=== PATIENT | male | born 1975 | race Caucasian/White ===

== ENCOUNTER 2016-10-22 09:59 | Emergency (ER) | payer OTHER ==
--- NOTE | 2016-10-22 11:12 | DIAGNOSTIC IMAGING REPORT ---
PROCEDURE: XR CHEST 2 VIEW INDICATION: COUGH, initial encounter TECHNIQUE: PA and lateral view. COMPARISON: None. FINDINGS: Lungs are clear. Cardiovascular structures are normal. Bony thorax is unremarkable. IMPRESSION: 1. Negative chest.
--- NOTE | 2016-10-22 12:25 | ED CLINICAL REPORT ---
Clinical Report - Physicians/Mid Levels [facility] [address] [place] [address] 10/22/2016 10:02 Patient: SERG MAURICIO Time Seen: 10:28; initial patient contact. Arrived- By private vehicle. Historian- patient. HISTORY OF PRESENT ILLNESS Chief Complaint: COUGH. This started about 1 week ago and is still present (worse). It was gradual in onset. The illness is described as moderate. The patient has had sputum production, a cough, a sore throat, nasal congestion and sinus pressure. He has had sinus drainage, chills, muscle aches and a nasal discharge. No difficulty breathing, chest discomfort or pain, fever or ear pain. Additional history - The patient has had contact with a sick individual. No recent travel. Similar symptoms previously: None. Recent medical care: Not recently seen/assessed. REVIEW OF SYSTEMS No headache, nausea or vomiting. He has had skin lesion. All systems otherwise negative, except as recorded above. PAST HISTORY Negative. Problems: no known problems. Surgeries: No history of previous surgery. Additional Surgeries: no known surgeries. Medications: None. Allergies: None. SOCIAL HISTORY Current every day smoker. ADDITIONAL NOTES The nursing notes have been reviewed with agreement regarding the chief complaint, PMH and patient medications and allergies. PHYSICAL EXAM Vital Signs: 10/22/2016 10:25 BP: 140/88. HR: 78. RR: 18. O2 saturation: 100%. Temp: 97.9 F. Have been reviewed. Hypertensive. Heart rate normal. Respiratory rate normal. Temperature normal. Oxygen saturation normal. Appearance: Alert. No acute distress. Eyes: Eyes normal inspection. ENT: Ears normal. Nose normal. Moderate generalized pharyngeal erythema with right tonsillar swelling and left tonsillar swelling. No right tonsillar exudate or left tonsillar exudate. Neck: Normal inspection. No lymphadenopathy. CVS: Normal heart rate and rhythm. Heart sounds normal. Respiratory: No respiratory distress. Expiratory mild wheezes in the left lung base posteriorly. Skin: Single medium abscess with fluctuance, pointing and cellulitis to the face. Extremities: No calf tenderness. No lower extremity edema. Neuro: Oriented X 3. LABS, X-RAYS, AND EKG Chest X-ray: No acute disease. Normal lung markings present. Normal heart size. No infiltrate. Views: PA and lateral. Technique: good. The X-rays were independently viewed by me and interpreted contemporaneously by me. Prior films were not available for comparison. Interpretation time: 1100. PROGRESS AND PROCEDURES Incision & Drainage of Abscess: Time: 12:24. Per protocol, time-out completed immediately before the procedure. The abscess is located in the face. The risks of the procedure, benefits and alternatives were explained. Skin cleansed with Shur-Clens. The abscess was incised with a surgical blade. A moderate amount of pus was drained. Sample obtained for cultures. Estimated blood loss: 2 mL. ( 18 ga needle used to incise). Disposition: Discharged home in good and improved condition. Condition: good. CLINICAL IMPRESSION 10/22/2016 11:05 BP: 134/78. HR: 81. RR: 12. O2 saturation: 99%. Vital Signs: have been reviewed as normal. Single deep abscess to the face with incision and drainage. Acute ethmoidal sinusitis INSTRUCTIONS Prescription Medications: Clindamycin 300 mg: take 1 capsule orally every 8 hours for 7 days. No refill. Flonase nasal spray: 2 sprays to each nostril daily. Dispense one (1) unit. No refills. Substitution is permissible Follow-up: Screening today revealed the patient's blood pressure to be in the pre-hypertensive range. The patient should follow up with a primary care provider for blood pressure management. Follow-up with: Wood Odell MD, [facility], , [facility], [address] [place] [address] Follow up in about three days. Call for an appointment. (Electronically signed by Pop Sifuentes Dr. 10/22/2016 21:58)
--- NOTE | 2016-10-22 12:25 | ED ORDER SUMMARY ---
..... Patient: SERG MAURICIO OrderSheet [facility] VisitID: [id number] [address] [place] [address] 41y, M Registration Date/Time: 10/22/2016 ORDER SHEET Weight: 145.1 kg (stated) Allergies: None GENERAL ORDERS: Chest 2V Urgent (10:41 10/22/2016 Aleena Haney) (Ack 10:46 LTapper) (11:04 JBoarbrittaney R.N.) Culture, Wound Deep (Face) (...) Urgent (12:25 10/22/2016 Aleena Haney) (12:28 RKmark) MEDICATION ORDERS: Hydrocodone-APAP PO 5/325 mg (NOW, HIGH ALERT MEDICATION) (12:23 10/22/2016 Aleena Haney) (Ack 12:25 JBoardley R.N.) (12:36 JBoardley R.N.) IV FLUIDS: ORDER SHEET NOTES: [Electronically signed by Nicholas Westfall R.N. (14:10/22/2016)] [Electronically signed by Pop Sifuentes Dr. (21:58 10/22/2016)] [Electronically locked/signed by Nicholas Westfall R.N. (14:10/22/2016)]
--- NOTE | 2016-10-22 12:25 | ED NURSING NOTES ---
Clinical Report - Nurses [facility] [address] [place] [address] 10/22/2016 10:02 Patient: SERG MAURICIO TRIAGE Triage time 10:25. Acuity: LEVEL 4. Chief Complaint: (Upper lip and RLE pain). 10:10/22/16. 10:10/22/16. --10:30 Nicholas Westfall R.N. 10:10/22/16. BP: 140/88. HR: 78. RR: 18. O2 saturation: 100% on room air. Temp: 97.9 F (oral). --10:30 Nicholas Westfall R.N. Weight: 145.1 kg stated. Height/Length: 76 inches Per Patient. BMI: 39. --10:27 Nicholas Westfall R.N. Medications None. --10:28 Nicholas Westfall R.N. Allergies None. --10:28 Nicholas Westfall R.N. History Arrived by private vehicle. Historian: patient. Primary physician (NONE). 10:10/22/16. 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 PAST MEDICAL HX: Immunizations not up to date. SOCIAL HX: Current every day light tobacco smoker (cigarette)- less than 1/2 a pack per day. No alcohol use or drug use. He has not traveled outside the [place] 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 FALL RISK ASSESSMENT: Fall risk assessment completed. No fall risk identified. NUTRITIONAL RISK ASSESSMENT: The nutritional risk assessment revealed no deficiencies. FUNCTIONAL ASSESSMENT: Functional assessment: no impairments noted. LEARNING NEEDS ASSESSMENT: The learning needs assessment revealed no barriers. SKIN INTEGRITY ASSESSMENT: Skin integrity risk assessment completed. No skin integrity risk identified. --10:30 Nicholas Westfall R.N. PROBLEMS: no known problems. ADDITIONAL SURGERIES: no known surgeries. Assessment 10:10/22/16. --10:30 Nicholas Westfall R.N. Interventions 10:10/22/16. ID and allergy band on patient. To treatment room. --10:30 Nicholas Westfall R.N. PHYSICAL ASSESSMENT 10:27 10/22/16. GENERAL / NEURO / PSYCH: Alert. Oriented X 4. Appears in no acute distress. RESPIRATORY: Respirations not labored. CVS: Capillary refill less than 2 seconds. SKIN: Small area of erythema to right leg (RLE). ( Upper lip with redness). --10:27 Nicholas Westfall R.N. NURSING PROGRESS NOTES 10:10/22/16. The plan of care for this patient has been created. Oxygen administered. Head of bed elevated. Two patient identifiers checked. Call light placed in reach. Side rails up x 2. Bed placed in lowest position. Brakes of bed on. Brakes of chair on. --10:29 Nicholas Westfall R.N. 10:10/22/16. Patient ready for evaluation- chart flagged. --10:29 Nicholas Westfall R.N. 11:10/22/16. --11:05 Nicholas Westfall R.N. 11:10/22/16. BP: 134/78. HR: 81. RR: 12. O2 saturation: 99% on room air. --11:05 Nicholas Westfall R.N. 11:51 10/22/16. Patient and family informed about reason for wait and about plan of care. --11:51 Nicholas Westfall R.N. 12:10/22/2016 Hydrocodone-APAP (Hydrocodone-Acetaminophen) PO 5/325 mg Tablets 1 tab given. Allergies verified, confirmed 5 rights and sedative warning given to the patient. --12:36 Nicholas Westfall R.N. 12:10/22/16. ( Wound culture sent to lab by JAQUAN NUNES). --12:26 Nicholas Westfall R.N. DISPOSITION / DISCHARGE 12:36 10/22/16. Condition at departure: improved. The goals identified in the patient's plan of care were met. No learning barriers present. Discharge instructions provided and reviewed with the patient. Reviewed warnings. Reviewed medication(s). Treatments reviewed. Patient verbalized understanding. Written instructions provided in Guatemalan. The patient was discharged by the physician. He was discharged home and accompanied by family. He left the Emergency Department ambulatory and via private vehicle. Family member driving. FALL RISK ASSESSMENT: Fall risk assessment completed. No fall risk identified. --12:36 Nicholas Westfall R.N. 12:36 10/22/16. BP: 126/82. HR: 72. RR: 12. O2 saturation: 100% on room air. Temp: 97.6 F (oral). --12:36 Nicholas Westfall R.N. 12:37 10/22/16. Departure time: 12:37. --12:37 Nicholas Westfall R.N. Locked/Released at 10/22/2016 14:25 by Nicholas Westfall R.N.
--- NOTE | 2016-10-22 12:25 | ED CLINICAL REPORT ---
Clinical Report - Physicians/Mid Levels [facility] [address] [place] [address] 10/22/2016 10:02 Patient: SERG MAURICIO Time Seen: 10:28; initial patient contact. Arrived- By private vehicle. Historian- patient. HISTORY OF PRESENT ILLNESS Chief Complaint: COUGH. This started about 1 week ago and is still present (worse). It was gradual in onset. The illness is described as moderate. The patient has had sputum production, a cough, a sore throat, nasal congestion and sinus pressure. He has had sinus drainage, chills, muscle aches and a nasal discharge. No difficulty breathing, chest discomfort or pain, fever or ear pain. Additional history - The patient has had contact with a sick individual. No recent travel. Similar symptoms previously: None. Recent medical care: Not recently seen/assessed. REVIEW OF SYSTEMS No headache, nausea or vomiting. He has had skin lesion. All systems otherwise negative, except as recorded above. PAST HISTORY Negative. Problems: no known problems. Surgeries: No history of previous surgery. Additional Surgeries: no known surgeries. Medications: None. Allergies: None. SOCIAL HISTORY Current every day smoker. ADDITIONAL NOTES The nursing notes have been reviewed with agreement regarding the chief complaint, PMH and patient medications and allergies. PHYSICAL EXAM Vital Signs: 10/22/2016 10:25 BP: 140/88. HR: 78. RR: 18. O2 saturation: 100%. Temp: 97.9 F. Have been reviewed. Hypertensive. Heart rate normal. Respiratory rate normal. Temperature normal. Oxygen saturation normal. Appearance: Alert. No acute distress. Eyes: Eyes normal inspection. ENT: Ears normal. Nose normal. Moderate generalized pharyngeal erythema with right tonsillar swelling and left tonsillar swelling. No right tonsillar exudate or left tonsillar exudate. Neck: Normal inspection. No lymphadenopathy. CVS: Normal heart rate and rhythm. Heart sounds normal. Respiratory: No respiratory distress. Expiratory mild wheezes in the left lung base posteriorly. Skin: Single medium abscess with fluctuance, pointing and cellulitis to the face. Extremities: No calf tenderness. No lower extremity edema. Neuro: Oriented X 3. LABS, X-RAYS, AND EKG Chest X-ray: No acute disease. Normal lung markings present. Normal heart size. No infiltrate. Views: PA and lateral. Technique: good. The X-rays were independently viewed by me and interpreted contemporaneously by me. Prior films were not available for comparison. Interpretation time: 1100. PROGRESS AND PROCEDURES Incision & Drainage of Abscess: Time: 12:24. Per protocol, time-out completed immediately before the procedure. The abscess is located in the face. The risks of the procedure, benefits and alternatives were explained. Skin cleansed with Shur-Clens. The abscess was incised with a surgical blade. A moderate amount of pus was drained. Sample obtained for cultures. Estimated blood loss: 2 mL. ( 18 ga needle used to incise). Disposition: Discharged home in good and improved condition. Condition: good. CLINICAL IMPRESSION 10/22/2016 11:05 BP: 134/78. HR: 81. RR: 12. O2 saturation: 99%. Vital Signs: have been reviewed as normal. Single deep abscess to the face with incision and drainage. Acute ethmoidal sinusitis INSTRUCTIONS Prescription Medications: Clindamycin 300 mg: take 1 capsule orally every 8 hours for 7 days. No refill. Flonase nasal spray: 2 sprays to each nostril daily. Dispense one (1) unit. No refills. Substitution is permissible Follow-up: Screening today revealed the patient's blood pressure to be in the pre-hypertensive range. The patient should follow up with a primary care provider for blood pressure management. Follow-up with: Wood Odell MD, [facility], , [facility], [address] [place] [address] Follow up in about three days. Call for an appointment. (Electronically signed by Pop Sifuentes Dr. 10/22/2016 21:58)
--- NOTE | 2016-10-22 12:25 | ED NURSING NOTES ---
Clinical Report - Nurses [facility] [address] [place] [address] 10/22/2016 10:02 Patient: SERG MAURICIO TRIAGE Triage time 10:25. Acuity: LEVEL 4. Chief Complaint: (Upper lip and RLE pain). 10:10/22/16. 10:10/22/16. --10:30 Nicholas Westfall R.N. 10:10/22/16. BP: 140/88. HR: 78. RR: 18. O2 saturation: 100% on room air. Temp: 97.9 F (oral). --10:30 Nicholas Westfall R.N. Weight: 145.1 kg stated. Height/Length: 76 inches Per Patient. BMI: 39. --10:27 Nicholas Westfall R.N. Medications None. --10:28 Nicholas Westfall R.N. Allergies None. --10:28 Nicholas Westfall R.N. History Arrived by private vehicle. Historian: patient. Primary physician (NONE). 10:10/22/16. 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 PAST MEDICAL HX: Immunizations not up to date. SOCIAL HX: Current every day light tobacco smoker (cigarette)- less than 1/2 a pack per day. No alcohol use or drug use. He has not traveled outside the [place] 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 FALL RISK ASSESSMENT: Fall risk assessment completed. No fall risk identified. NUTRITIONAL RISK ASSESSMENT: The nutritional risk assessment revealed no deficiencies. FUNCTIONAL ASSESSMENT: Functional assessment: no impairments noted. LEARNING NEEDS ASSESSMENT: The learning needs assessment revealed no barriers. SKIN INTEGRITY ASSESSMENT: Skin integrity risk assessment completed. No skin integrity risk identified. --10:30 Nicholas Westfall R.N. PROBLEMS: no known problems. ADDITIONAL SURGERIES: no known surgeries. Assessment 10:10/22/16. --10:30 Nicholas Westfall R.N. Interventions 10:10/22/16. ID and allergy band on patient. To treatment room. --10:30 Nicholas Westfall R.N. PHYSICAL ASSESSMENT 10:27 10/22/16. GENERAL / NEURO / PSYCH: Alert. Oriented X 4. Appears in no acute distress. RESPIRATORY: Respirations not labored. CVS: Capillary refill less than 2 seconds. SKIN: Small area of erythema to right leg (RLE). ( Upper lip with redness). --10:27 Nicholas Westfall R.N. NURSING PROGRESS NOTES 10:10/22/16. The plan of care for this patient has been created. Oxygen administered. Head of bed elevated. Two patient identifiers checked. Call light placed in reach. Side rails up x 2. Bed placed in lowest position. Brakes of bed on. Brakes of chair on. --10:29 Nicholas Westfall R.N. 10:10/22/16. Patient ready for evaluation- chart flagged. --10:29 Nicholas Westfall R.N. 11:10/22/16. --11:05 Nicholas Westfall R.N. 11:10/22/16. BP: 134/78. HR: 81. RR: 12. O2 saturation: 99% on room air. --11:05 Nicholas Westfall R.N. 11:51 10/22/16. Patient and family informed about reason for wait and about plan of care. --11:51 Nicholas Westfall R.N. 12:10/22/2016 Hydrocodone-APAP (Hydrocodone-Acetaminophen) PO 5/325 mg Tablets 1 tab given. Allergies verified, confirmed 5 rights and sedative warning given to the patient. --12:36 Nicholas Westfall R.N. 12:10/22/16. ( Wound culture sent to lab by JAQUAN NUNES). --12:26 Nicholas Westfall R.N. DISPOSITION / DISCHARGE 12:36 10/22/16. Condition at departure: improved. The goals identified in the patient's plan of care were met. No learning barriers present. Discharge instructions provided and reviewed with the patient. Reviewed warnings. Reviewed medication(s). Treatments reviewed. Patient verbalized understanding. Written instructions provided in Sudanese. The patient was discharged by the physician. He was discharged home and accompanied by family. He left the Emergency Department ambulatory and via private vehicle. Family member driving. FALL RISK ASSESSMENT: Fall risk assessment completed. No fall risk identified. --12:36 Nicholas Westfall R.N. 12:36 10/22/16. BP: 126/82. HR: 72. RR: 12. O2 saturation: 100% on room air. Temp: 97.6 F (oral). --12:36 Nicholas Westfall R.N. 12:37 10/22/16. Departure time: 12:37. --12:37 Nicholas Westfall R.N. Locked/Released at 10/22/2016 14:25 by Nicholas Westfall R.N.
--- NOTE | 2016-10-22 12:25 | ED ORDER SUMMARY ---
..... Patient: SERG MAURICIO OrderSheet [facility] VisitID: [id number] [address] [place] [address] 41y, M Registration Date/Time: 10/22/2016 ORDER SHEET Weight: 145.1 kg (stated) Allergies: None GENERAL ORDERS: Chest 2V Urgent (10:41 10/22/2016 Aleena Haney) (Ack 10:46 LTapper) (11:04 JBoarbrittaney R.N.) Culture, Wound Deep (Face) (...) Urgent (12:25 10/22/2016 Aleena Haney) (12:28 RKmark) MEDICATION ORDERS: Hydrocodone-APAP PO 5/325 mg (NOW, HIGH ALERT MEDICATION) (12:23 10/22/2016 Aleena Haney) (Ack 12:25 JBoardley R.N.) (12:36 JBoardley R.N.) IV FLUIDS: ORDER SHEET NOTES: [Electronically signed by Nicholas Westfall R.N. (14:10/22/2016)] [Electronically signed by Pop Sifuentes Dr. (21:58 10/22/2016)] [Electronically locked/signed by Nicholas Westfall R.N. (14:10/22/2016)]
--- NOTE | 2016-10-22 21:58 | ED MAR SUMMARY ---
..... Medication Administration Record [facility] [address] [place] [address] Patient: SERG MAURICIO Visit ID: [id number] 41y, M Weight: 145.1 kg Height/Length: 76 in BMI: 39 ALLERGIES: None Given 12:26 10/22/2016 Nicholas Westfall R.N. Medication Administered: HYDROCODONE-APAP [PO] (HYDROCODONE-ACETAMINOPHEN), Dose: 1 tab 5/325 mg Tablets PO. Medication Ordered: Hydrocodone-APAP PO 5/325 mg (NOW, HIGH ALERT MEDICATION).
--- NOTE | 2016-10-22 21:58 | ED DISCHARGE INSTRUCTIONS ---
Patient: SERG MAURICIO General Instructions [facility] VisitID: [id number] [place] [address] 41y, M Registration Date/Time: 10/22/2016 10/22/2016 11:05 BP: 134/78. HR: 81. RR: 12. O2 saturation: 99%. Vital Signs: have been reviewed as normal. Single deep abscess to the face with incision and drainage. Acute ethmoidal sinusitis INSTRUCTIONS Prescription Medications: Clindamycin 300 mg: take 1 capsule orally every 8 hours for 7 days. No refill. Flonase nasal spray: 2 sprays to each nostril daily. Dispense one (1) unit. No refills. Substitution is permissible Follow-up: Screening today revealed the patient's blood pressure to be in the pre-hypertensive range. The patient should follow up with a primary care provider for blood pressure management. Follow-up with: Wood Odell MD, [facility], , [facility], [address] [place] [address] Follow up in about three days. Call for an appointment. ADDITIONAL INFORMATION Abscess [Incision & Drainage] An abscess (sometimes called a boil) occurs when bacteria get trapped under the skin and begin to grow. Pus forms inside the abscess as the body responds to the bacteria. An abscess can occur with an insect bite, ingrown hair, blocked oil gland, pimple, cyst, or puncture wound. Treatment of your abscess has required an incision to drain the pus. If the abscess pocket was large, a gauze packing may have been inserted. This will need to be removed and possibly replaced on your next visit. Antibiotics are not required in the treatment of a simple abscess, unless the infection is spreading into the skin around the wound (known as cellulitis). Healing of the wound will take about one to two weeks depending on the size of the abscess. Healthy tissue will grow from the bottom and sides of the opening until it seals over. Home Care: The wound may drain for the first two days. Cover the wound with a clean dry dressing. If the dressing becomes soaked with blood or pus, change it. If a gauze packing was placed inside the abscess cavity, you may be advised to remove it yourself. You may do this in the shower. Once the packing is removed, you should wash the area in the shower or bath 3 to 4 times a day, until the skin opening has closed. If you were prescribed antibiotics, take them as directed until they are all gone. You may use acetaminophen (Tylenol) or ibuprofen (Motrin, Advil) to control pain, unless another pain medicine was prescribed. [ NOTE: If you have liver disease or ever had a stomach ulcer, talk with your doctor before using these medicines.] Follow Up with your doctor as advised by our staff. If a gauze packing was inserted in your wound, it should be removed in 1-2 days. Check your wound every day for the signs of worsening infection listed below. Get Prompt Medical Attention if any of the following occur: Increasing redness or swelling Red streaks in the skin leading away from the wound Increasing local pain or swelling Continued pus draining from the wound two days after treatment Fever of 100.4F (38C) or higher, or as directed by your healthcare provider Sinusitis [Abx Tx] The sinuses are air-filled spaces within the bones of the face. They connect to the inside of the nose. Sinusitis is an inflammation of the tissue lining the sinus cavity. Sinus inflammation can occur during a cold or hay-fever (allergies to pollens and other particles in the air) and cause symptoms of sinus congestion and fullness. A sinus infection causes fever, headache and facial pain. There is usually green or yellow drainage from the nose or into the back of the throat (post-nasal drip). Antibiotics are prescribed to treat this condition. Home Care: Drink plenty of water, hot tea, and other liquids to stay well hydrated. This thins the mucus and promotes sinus drainage. Apply heat to the painful areas of the face. Use a towel soaked in hot water. Or, search advertising strategist the shower and direct the hot spray onto your face. This is a good way to inhale warm water vapor and get heat on your face at the same time. (Cover your mouth and nose with your hands so you can still breathe as you do this.) Use a vaporizer with products such as Vicks VapoRub (contains menthol) at night. Suck on peppermint, menthol or eucalyptus hard candies during the day. An expectorant containing guaifenesin (such as Robitussin), helps to thin the mucus and promote drainage from the sinuses. Oval-bbx-[id number] decongestants may be used unless a similar medicine was prescribed. Nasal sprays work the fastest. Use one that contains phenylephrine (Zaid-synephrine, Sinex and others) or oxymetazoline (Afrin). First blow the nose gently to remove mucus, then apply the drops. Do not use these medicines more often than directed on the label or for more than three days or symptoms may worsen. You may also use tablets containing pseudoephedrine (Sudafed). Many sinus remedies combine ingredients, which may increase side effects. Read the labels or ask the pharmacist for help. NOTE: Persons with high blood pressure should not use decongestants. They can raise blood pressure. Antihistamines are useful if allergies are a cause of your sinusitis. The mildest one is chlorpheniramine (available without a prescription). The dose for adults is 8-12mg three times a day. [NOTE: Do not use chlorpheniramine if you have glaucoma or if you are a man with trouble urinating due to an enlarged prostate.] Claritin (loratidine) is an antihistamine that causes less drowsiness and is a good alternative for daytime use. Do not use nasal rinses or irrigation during an acute sinus infection, unless advised by your doctor. Rinsing may spread the infection to other sinuses. You may use acetaminophen (Tylenol) or ibuprofen (Motrin, Advil) to control pain, unless another pain medicine was prescribed. [ NOTE: If you have chronic liver or kidney disease or ever had a stomach ulcer, talk with your doctor before using these medicines.] (Aspirin should never be used in anyone under 18 years of age who is ill with a fever. It may cause severe liver damage.) Finish the full course, even if you are feeling better after a few days. Follow Up with your doctor or this facility in one week or as instructed by our staff if not improving. Get Prompt Medical Attention if any of the following occur: Facial pain or headache becomes more severe Stiff neck Unusual drowsiness or confusion, or not acting like your normal self Swelling of the forehead or eyelids Vision problems including blurred or double vision Fever of 100.4F (38C) or higher, or as directed by your healthcare provider Seizure Clindamycin Hydrochloride Oral capsule What is this medicine? CLINDAMYCIN (ELAINE Solis) is a lincosamide antibiotic. It is used to treat certain kinds of bacterial infections. It will not work for colds, flu, or other viral infections. How should I use this medicine? Take this medicine by mouth with a full glass of water. Follow the directions on the prescription label. You can take this medicine with food or on an empty stomach. If the medicine upsets your stomach, take it with food. Take your medicine at regular intervals. Do not take your medicine more often than directed. Take all of your medicine as directed even if you think your are better. Do not skip doses or stop your medicine early. Talk to your ore grader regarding the use of this medicine in children. Special care may be needed. What side effects may I notice from receiving this medicine? Side effects that you should report to your doctor or health healthcare administration internship as soon as possible: allergic reactions like skin rash, itching or hives, swelling of the face, lips, or tongue dark urine pain on swallowing redness, blistering, peeling or loosening of the skin, including inside the mouth unusual bleeding or bruising unusually weak or tired yellowing of eyes or skin Side effects that usually do not require medical attention (report to your doctor or health healthcare administration internship if they continue or are bothersome): diarrhea itching in the rectal or genital area joint pain nausea, vomiting stomach pain What may interact with this medicine? chloramphenicol erythromycin kaolin products What if I miss a dose? If you miss a dose, take it as soon as you can. If it is almost time for your next dose, take only that dose. Do not take double or extra doses. Where should I keep my medicine? Keep out of the reach of children. Store at room temperature between 20 and 25 degrees C (68 and 77 degrees F). Throw away any unused medicine after the expiration date. What should I tell my health care provider before I take this medicine? They need to know if you have any of these conditions: kidney disease liver disease stomach problems like colitis an unusual or allergic reaction to clindamycin, lincomycin, or other medicines, foods, dyes like tartrazine or preservatives or trying to get breast-feeding What should I watch for while using this medicine? Tell your doctor or healthcare professional if your symptoms do not start to get better or if they get worse. Do not treat diarrhea with over the counter products. Contact your doctor if you have diarrhea that lasts more than 2 days or if it is severe and watery. Fluticasone Propionate Nasal spray, solution What is this medicine? FLUTICASONE (floo TIK a sone) is a corticosteroid. It helps decrease inflammation in your nose. This medicine is used to treat the symptoms of allergies like sneezing, itching, and runny or stuffy nose. How should I use this medicine? This medicine is for use in the nose. Follow the directions on your prescription label. This medicine works best if used regularly. Do not use more often than directed. Make sure that you are using your nasal spray correctly. Ask you doctor or health care provider if you have any questions. Talk to your ore grader regarding the use of this medicine in children. While this drug may be prescribed for children as young as 4 years old for selected conditions, precautions do apply. What side effects may I notice from receiving this medicine? Side effects that you should report to your doctor or health healthcare administration internship as soon as possible: allergic reactions like skin rash, itching or hives, swelling of the face, lips, or tongue changes in vision flu-like symptoms white patches or sores in the mouth or nose Side effects that usually do not require medical attention (report to your doctor or health healthcare administration internship if they continue or are bothersome): burning or irritation inside the nose or throat cough headache nosebleed unusual taste or smell What may interact with this medicine? ketoconazole metyrapone some medicines for HIV vaccines What if I miss a dose? If you miss a dose, use it as soon as you remember. If it is almost time for your next dose, use only that dose and continue with your regular schedule. Do not use double or extra doses. Where should I keep my medicine? Keep out of the reach of children. Store at room temperature between 15 and 30 degrees C (59 and 86 degrees F). Throw away any unused medicine after the expiration date. What should I tell my health care provider before I take this medicine? They need to know if you have any of these conditions: infection, like tuberculosis, herpes, or fungal infection recent surgery on nose or sinuses taking corticosteroid by mouth an unusual or allergic reaction to fluticasone, steroids, other medicines, foods, dyes, or preservatives or trying to get breast-feeding What should I watch for while using this medicine? Visit your doctor or health healthcare administration internship for regular checks on your progress. Some symptoms may improve within 12 hours after starting use. Check with your doctor or health healthcare administration internship if there is no improvement in your condition after 3 weeks of use. Do not come in contact with people who have chickenpox or the measles while you are taking this medicine. If you do, call your doctor right away. You have been given the following additional information: Abscess, Incision And Drainage Sinusitis, Abx Tx Clindamycin Hydrochloride Oral capsule Fluticasone Propionate Nasal spray, solution (Electronically signed by Pop Sifuentes Dr. 10/22/2016 21:58)
--- NOTE | 2016-10-22 21:58 | ED MAR SUMMARY ---
..... Medication Administration Record [facility] [address] [place] [address] Patient: SERG MAURICIO Visit ID: [id number] 41y, M Weight: 145.1 kg Height/Length: 76 in BMI: 39 ALLERGIES: None Given 12:26 10/22/2016 Nicholas Westfall R.N. Medication Administered: HYDROCODONE-APAP [PO] (HYDROCODONE-ACETAMINOPHEN), Dose: 1 tab 5/325 mg Tablets PO. Medication Ordered: Hydrocodone-APAP PO 5/325 mg (NOW, HIGH ALERT MEDICATION).
--- NOTE | 2016-10-22 21:58 | ED DISCHARGE INSTRUCTIONS ---
Patient: SERG MAURICIO General Instructions [facility] VisitID: [id number] [place] [address] 41y, M Registration Date/Time: 10/22/2016 10/22/2016 11:05 BP: 134/78. HR: 81. RR: 12. O2 saturation: 99%. Vital Signs: have been reviewed as normal. Single deep abscess to the face with incision and drainage. Acute ethmoidal sinusitis INSTRUCTIONS Prescription Medications: Clindamycin 300 mg: take 1 capsule orally every 8 hours for 7 days. No refill. Flonase nasal spray: 2 sprays to each nostril daily. Dispense one (1) unit. No refills. Substitution is permissible Follow-up: Screening today revealed the patient's blood pressure to be in the pre-hypertensive range. The patient should follow up with a primary care provider for blood pressure management. Follow-up with: Wood Odell MD, [facility], , [facility], [address] [place] [address] Follow up in about three days. Call for an appointment. ADDITIONAL INFORMATION Abscess [Incision & Drainage] An abscess (sometimes called a boil) occurs when bacteria get trapped under the skin and begin to grow. Pus forms inside the abscess as the body responds to the bacteria. An abscess can occur with an insect bite, ingrown hair, blocked oil gland, pimple, cyst, or puncture wound. Treatment of your abscess has required an incision to drain the pus. If the abscess pocket was large, a gauze packing may have been inserted. This will need to be removed and possibly replaced on your next visit. Antibiotics are not required in the treatment of a simple abscess, unless the infection is spreading into the skin around the wound (known as cellulitis). Healing of the wound will take about one to two weeks depending on the size of the abscess. Healthy tissue will grow from the bottom and sides of the opening until it seals over. Home Care: The wound may drain for the first two days. Cover the wound with a clean dry dressing. If the dressing becomes soaked with blood or pus, change it. If a gauze packing was placed inside the abscess cavity, you may be advised to remove it yourself. You may do this in the shower. Once the packing is removed, you should wash the area in the shower or bath 3 to 4 times a day, until the skin opening has closed. If you were prescribed antibiotics, take them as directed until they are all gone. You may use acetaminophen (Tylenol) or ibuprofen (Motrin, Advil) to control pain, unless another pain medicine was prescribed. [ NOTE: If you have liver disease or ever had a stomach ulcer, talk with your doctor before using these medicines.] Follow Up with your doctor as advised by our staff. If a gauze packing was inserted in your wound, it should be removed in 1-2 days. Check your wound every day for the signs of worsening infection listed below. Get Prompt Medical Attention if any of the following occur: Increasing redness or swelling Red streaks in the skin leading away from the wound Increasing local pain or swelling Continued pus draining from the wound two days after treatment Fever of 100.4F (38C) or higher, or as directed by your healthcare provider Sinusitis [Abx Tx] The sinuses are air-filled spaces within the bones of the face. They connect to the inside of the nose. Sinusitis is an inflammation of the tissue lining the sinus cavity. Sinus inflammation can occur during a cold or hay-fever (allergies to pollens and other particles in the air) and cause symptoms of sinus congestion and fullness. A sinus infection causes fever, headache and facial pain. There is usually green or yellow drainage from the nose or into the back of the throat (post-nasal drip). Antibiotics are prescribed to treat this condition. Home Care: Drink plenty of water, hot tea, and other liquids to stay well hydrated. This thins the mucus and promotes sinus drainage. Apply heat to the painful areas of the face. Use a towel soaked in hot water. Or, precision honing machine operator the shower and direct the hot spray onto your face. This is a good way to inhale warm water vapor and get heat on your face at the same time. (Cover your mouth and nose with your hands so you can still breathe as you do this.) Use a vaporizer with products such as Vicks VapoRub (contains menthol) at night. Suck on peppermint, menthol or eucalyptus hard candies during the day. An expectorant containing guaifenesin (such as Robitussin), helps to thin the mucus and promote drainage from the sinuses. Auab-rbh-yopwuop decongestants may be used unless a similar medicine was prescribed. Nasal sprays work the fastest. Use one that contains phenylephrine (Zaid-synephrine, Sinex and others) or oxymetazoline (Afrin). First blow the nose gently to remove mucus, then apply the drops. Do not use these medicines more often than directed on the label or for more than three days or symptoms may worsen. You may also use tablets containing pseudoephedrine (Sudafed). Many sinus remedies combine ingredients, which may increase side effects. Read the labels or ask the pharmacist for help. NOTE: Persons with high blood pressure should not use decongestants. They can raise blood pressure. Antihistamines are useful if allergies are a cause of your sinusitis. The mildest one is chlorpheniramine (available without a prescription). The dose for adults is 8-12mg three times a day. [NOTE: Do not use chlorpheniramine if you have glaucoma or if you are a man with trouble urinating due to an enlarged prostate.] Claritin (loratidine) is an antihistamine that causes less drowsiness and is a good alternative for daytime use. Do not use nasal rinses or irrigation during an acute sinus infection, unless advised by your doctor. Rinsing may spread the infection to other sinuses. You may use acetaminophen (Tylenol) or ibuprofen (Motrin, Advil) to control pain, unless another pain medicine was prescribed. [ NOTE: If you have chronic liver or kidney disease or ever had a stomach ulcer, talk with your doctor before using these medicines.] (Aspirin should never be used in anyone under 18 years of age who is ill with a fever. It may cause severe liver damage.) Finish the full course, even if you are feeling better after a few days. Follow Up with your doctor or this facility in one week or as instructed by our staff if not improving. Get Prompt Medical Attention if any of the following occur: Facial pain or headache becomes more severe Stiff neck Unusual drowsiness or confusion, or not acting like your normal self Swelling of the forehead or eyelids Vision problems including blurred or double vision Fever of 100.4F (38C) or higher, or as directed by your healthcare provider Seizure Clindamycin Hydrochloride Oral capsule What is this medicine? CLINDAMYCIN (ELAINE Solis) is a lincosamide antibiotic. It is used to treat certain kinds of bacterial infections. It will not work for colds, flu, or other viral infections. How should I use this medicine? Take this medicine by mouth with a full glass of water. Follow the directions on the prescription label. You can take this medicine with food or on an empty stomach. If the medicine upsets your stomach, take it with food. Take your medicine at regular intervals. Do not take your medicine more often than directed. Take all of your medicine as directed even if you think your are better. Do not skip doses or stop your medicine early. Talk to your desk officer regarding the use of this medicine in children. Special care may be needed. What side effects may I notice from receiving this medicine? Side effects that you should report to your doctor or health career information specialist as soon as possible: allergic reactions like skin rash, itching or hives, swelling of the face, lips, or tongue dark urine pain on swallowing redness, blistering, peeling or loosening of the skin, including inside the mouth unusual bleeding or bruising unusually weak or tired yellowing of eyes or skin Side effects that usually do not require medical attention (report to your doctor or health career information specialist if they continue or are bothersome): diarrhea itching in the rectal or genital area joint pain nausea, vomiting stomach pain What may interact with this medicine? chloramphenicol erythromycin kaolin products What if I miss a dose? If you miss a dose, take it as soon as you can. If it is almost time for your next dose, take only that dose. Do not take double or extra doses. Where should I keep my medicine? Keep out of the reach of children. Store at room temperature between 20 and 25 degrees C (68 and 77 degrees F). Throw away any unused medicine after the expiration date. What should I tell my health care provider before I take this medicine? They need to know if you have any of these conditions: kidney disease liver disease stomach problems like colitis an unusual or allergic reaction to clindamycin, lincomycin, or other medicines, foods, dyes like tartrazine or preservatives or trying to get breast-feeding What should I watch for while using this medicine? Tell your doctor or healthcare professional if your symptoms do not start to get better or if they get worse. Do not treat diarrhea with over the counter products. Contact your doctor if you have diarrhea that lasts more than 2 days or if it is severe and watery. Fluticasone Propionate Nasal spray, solution What is this medicine? FLUTICASONE (floo TIK a sone) is a corticosteroid. It helps decrease inflammation in your nose. This medicine is used to treat the symptoms of allergies like sneezing, itching, and runny or stuffy nose. How should I use this medicine? This medicine is for use in the nose. Follow the directions on your prescription label. This medicine works best if used regularly. Do not use more often than directed. Make sure that you are using your nasal spray correctly. Ask you doctor or health care provider if you have any questions. Talk to your desk officer regarding the use of this medicine in children. While this drug may be prescribed for children as young as 4 years old for selected conditions, precautions do apply. What side effects may I notice from receiving this medicine? Side effects that you should report to your doctor or health career information specialist as soon as possible: allergic reactions like skin rash, itching or hives, swelling of the face, lips, or tongue changes in vision flu-like symptoms white patches or sores in the mouth or nose Side effects that usually do not require medical attention (report to your doctor or health career information specialist if they continue or are bothersome): burning or irritation inside the nose or throat cough headache nosebleed unusual taste or smell What may interact with this medicine? ketoconazole metyrapone some medicines for HIV vaccines What if I miss a dose? If you miss a dose, use it as soon as you remember. If it is almost time for your next dose, use only that dose and continue with your regular schedule. Do not use double or extra doses. Where should I keep my medicine? Keep out of the reach of children. Store at room temperature between 15 and 30 degrees C (59 and 86 degrees F). Throw away any unused medicine after the expiration date. What should I tell my health care provider before I take this medicine? They need to know if you have any of these conditions: infection, like tuberculosis, herpes, or fungal infection recent surgery on nose or sinuses taking corticosteroid by mouth an unusual or allergic reaction to fluticasone, steroids, other medicines, foods, dyes, or preservatives or trying to get breast-feeding What should I watch for while using this medicine? Visit your doctor or health career information specialist for regular checks on your progress. Some symptoms may improve within 12 hours after starting use. Check with your doctor or health career information specialist if there is no improvement in your condition after 3 weeks of use. Do not come in contact with people who have chickenpox or the measles while you are taking this medicine. If you do, call your doctor right away. You have been given the following additional information: Abscess, Incision And Drainage Sinusitis, Abx Tx Clindamycin Hydrochloride Oral capsule Fluticasone Propionate Nasal spray, solution (Electronically signed by Pop Sifuentes Dr. 10/22/2016 21:58)
--- NOTE | 2016-10-22 21:59 | ED MED RECONCILIATION SUMMARY ---
Patient: SERG MAURICIO Medication Reconciliation Report [facility] VisitID: [id number] [address] [place] [address] 41y, M Registration Date/Time: 10/22/2016 Weight: 145.1 kg Height/Length: 76 in. BMI: 39.0 ALLERGIES: None The patient's Home Medications are listed below: NONE. The source(s) of the original Home Medication information: Not obtained. The following Medications were given to the patient in the Emergency Department: Hydrocodone-APAP [PO] PO 1 tab, administered: 10/22/2016 12:26:00 PM The following Medications were prescribed to the patient: Clindamycin 300 mg: take 1 capsule orally every 8 hours for 7 days. No refill. -- Pop Sifuentes Dr. Flonasdarron nasal spray: 2 sprays to each nostril daily. Dispense one (1) unit. No refills. Substitution is permissible -- Pop Sifuentes Dr.
--- NOTE | 2016-10-22 21:59 | ED MED RECONCILIATION SUMMARY ---
Patient: SERG MAURICIO Medication Reconciliation Report [facility] VisitID: [id number] [address] [place] [address] 41y, M Registration Date/Time: 10/22/2016 Weight: 145.1 kg Height/Length: 76 in. BMI: 39.0 ALLERGIES: None The patient's Home Medications are listed below: NONE. The source(s) of the original Home Medication information: Not obtained. The following Medications were given to the patient in the Emergency Department: Hydrocodone-APAP [PO] PO 1 tab, administered: 10/22/2016 12:26:00 PM The following Medications were prescribed to the patient: Clindamycin 300 mg: take 1 capsule orally every 8 hours for 7 days. No refill. -- Pop Sifuentes Dr. Flonasdarron nasal spray: 2 sprays to each nostril daily. Dispense one (1) unit. No refills. Substitution is permissible -- Pop Sifuentes Dr.
== END 2016-10-22 12:37 | disposition home or self-care (01) ==
LOC: ED SRH 09:59
PROC: 0J910ZZ Drainage of Face Subcutaneous Tissue and Fascia, Open Approach (ICD-10-PCS; principal; 2016-10-22)
DX: L02.01 Cutaneous abscess of face (principal); J01.20 Acute ethmoidal sinusitis, unspecified; F17.200 Nicotine dependence, unspecified, uncomplicated
CPT/HCPCS: 90070; 90131; 90309; 90470; 91672